=== PATIENT | female | born 1945 | race Caucasian/White ===

== ENCOUNTER 2020-04-12 14:51 | Inpatient (IN) ==
[2020-04-12] MEDS ORDERED: D5% in Water 1,000 ML IVC PRN (21:26)
[2020-04-12] MEDS ORDERED: Dextrose Gel 15 GM/37.5 ML TUBE PO PRN ×2 (21:26)
[2020-04-12] MEDS ORDERED: *HR* Dextrose 50 % in Water (Vial) 50 ML VIAL IVP PRN (21:26)
[2020-04-12] MEDS: Gabapentin 100 MG CAPSULE PO SCH (21:35)
[2020-04-12] MEDS: carvediloL 6.25 MG TABLET PO SCH (21:35)
[2020-04-12] MEDS: hydrOXYzine pamoate 25 MG CAPSULE PO SCH (21:36)
[2020-04-12] MEDS: Insulin LISPRO 300 UNITS/3 ML VIAL SQ SCH (22:42)
[2020-04-13] MEDS: *HR* Enoxaparin 30 MG/0.3 ML SYRINGE SQ SCH (06:12)
[2020-04-13] MEDS ORDERED: *HR* Metformin 500 MG TABLET PO SCH (08:00)
[2020-04-13] MEDS: carvediloL 6.25 MG TABLET PO SCH ×2 (08:41→17:15)
[2020-04-13] MEDS: allopurinoL 100 MG TABLET PO SCH (08:41)
[2020-04-13] MEDS: GlipiZIDE 5 MG TABLET PO SCH (08:41)
[2020-04-13] MEDS: lisinopriL 10 MG TABLET PO SCH (08:42)
[2020-04-13] MEDS: Insulin LISPRO 300 UNITS/3 ML VIAL SQ SCH ×4 (08:42→20:09)
[2020-04-13] MEDS: Furosemide 40 MG TABLET PO SCH (08:42)
[2020-04-13] MEDS: Aspirin Enteric Coated 81 MG Tablet PO SCH (08:42)
[2020-04-13] MEDS: Gabapentin 100 MG CAPSULE PO SCH ×3 (08:42→20:07)
[2020-04-13 16:45] LABS: Bilirubin,Urine Negative (Negative); Blood,Urine Moderate (Negative); Clarity,Urine Clear (Clear); Color,Urine Red (Yellow); Glucose,Urine (UA) Normal (Normal); Ketones,Urine Negative (Negative); Leukocyte Esterase,Urine Trace (Negative); Nitrite,Urine Negative (Negative); PH,Urine 6.5 pH Units (5.0-8.0); Protein,Urine 30 mg/dL (Neg-Trace); Urobilinogen,Urine Normal (Normal)
[2020-04-13 16:47] LABS: RBC,Urine TNTC per hpf (0-3); Squamous Epithelial Cell,Urine Few per hpf (None-Few); WBC,Urine 0-3 per hpf (0-3)
[2020-04-13] MEDS: Acetaminophen 325 MG TABLET PO PRN (20:08)
[2020-04-13] MEDS: hydrOXYzine pamoate 25 MG CAPSULE PO SCH (20:08)
[2020-04-14] MEDS: *HR* Enoxaparin 30 MG/0.3 ML SYRINGE SQ SCH (05:46)
[2020-04-14] MEDS: GlipiZIDE 5 MG TABLET PO SCH (08:13)
[2020-04-14] MEDS: Gabapentin 100 MG CAPSULE PO SCH ×3 (08:13→19:54)
[2020-04-14] MEDS: Aspirin Enteric Coated 81 MG Tablet PO SCH (08:13)
[2020-04-14] MEDS: allopurinoL 100 MG TABLET PO SCH (08:14)
[2020-04-14] MEDS: Furosemide 40 MG TABLET PO SCH (08:14)
[2020-04-14] MEDS: carvediloL 6.25 MG TABLET PO SCH ×2 (08:14→17:00)
[2020-04-14] MEDS: lisinopriL 10 MG TABLET PO SCH (08:14)
[2020-04-14] MEDS: Insulin LISPRO 300 UNITS/3 ML VIAL SQ SCH ×4 (08:15→19:54)
[2020-04-14] MEDS: Acetaminophen 325 MG TABLET PO PRN ×2 (11:01→17:02)
[2020-04-14] MEDS: hydrOXYzine pamoate 25 MG CAPSULE PO SCH (19:54)
[2020-04-14] MEDS ORDERED: Ipratropium/Albuterol Neb 3 ML IH PRN (23:15)
[2020-04-15] MEDS: *HR* Enoxaparin 40 MG/0.4 ML SYRINGE SQ SCH (04:56)
[2020-04-15 06:20] LABS: Basophils % 0.3 %; Eosinophils # 0.3 K/mcL (0.0-0.6); Eosinophils % 4.8 %; Hematocrit 37.6 % (35.3-44.9); Hemoglobin 11.5 g/dL (11.5-15.4); Immature Granulocytes % 1.2 % (0-4); Lymphocytes # 1.6 K/mcL (0.6-4.6); Lymphocytes % 24.5 %; Mean Corpuscular HGB Conc 30.6 g/dL (31.6-35.5); Mean Corpuscular Hemoglobin 29.2 pg (28.0-33.3); Mean Corpuscular Volume 95.4 fL (83.0-100.0); Mean Platelet Volume 9.4 fL (9.4-12.4); Monocytes # 0.7 K/mcL (0.0-1.3); Neutrophils # 3.8 K/mcL (1.6-8.9); Platelet Count 198 K/mcL (140-400); Red Blood Count 3.94 M/mcL (3.82-4.97); Red Cell Distribution Width 13.3 % (11.5-14.5); Segmented Neutrophils % 58.2 %; White Blood Count 6.5 K/mcL (4.3-11.1)
[2020-04-15 07:36] LABS: Calcium 8.8 mg/dL (8.6-10.3); Potassium 3.8 mEq/L (3.5-5.1)
[2020-04-15] MEDS: Furosemide 40 MG TABLET PO SCH (07:58)
[2020-04-15] MEDS: carvediloL 6.25 MG TABLET PO SCH ×2 (07:58→17:09)
[2020-04-15] MEDS: Gabapentin 100 MG CAPSULE PO SCH ×3 (07:58→20:39)
[2020-04-15] MEDS: GlipiZIDE 5 MG TABLET PO SCH (07:58)
[2020-04-15] MEDS: Aspirin Enteric Coated 81 MG Tablet PO SCH (07:58)
[2020-04-15] MEDS: lisinopriL 10 MG TABLET PO SCH (07:58)
[2020-04-15] MEDS: allopurinoL 100 MG TABLET PO SCH (07:59)
[2020-04-15] MEDS: Acetaminophen 325 MG TABLET PO PRN ×2 (08:01→20:40)
[2020-04-15] MEDS: Insulin LISPRO 300 UNITS/3 ML VIAL SQ SCH ×4 (08:03→20:40)
[2020-04-15] MEDS ORDERED: Ergocalciferol (VIT D2) 50,000 UNIT (1.25MG) CAP PO SCH (09:00)
[2020-04-15] MEDS: Budesonide/Formoterol 160/4.5 1 PUFF INH IH SCH ×2 (10:10→21:24)
[2020-04-15] MEDS: hydrOXYzine pamoate 25 MG CAPSULE PO SCH (20:39)
[2020-04-16 05:19] LABS: Basophils % 0.4 %; Eosinophils # 0.3 K/mcL (0.0-0.6); Eosinophils % 4.6 %; Hematocrit 35.1 % (35.3-44.9); Hemoglobin 10.7 g/dL (11.5-15.4); Lymphocytes # 2.1 K/mcL (0.6-4.6); Lymphocytes % 30.7 %; Mean Corpuscular HGB Conc 30.5 g/dL (31.6-35.5); Mean Corpuscular Hemoglobin 29.2 pg (28.0-33.3); Mean Corpuscular Volume 95.6 fL (83.0-100.0); Mean Platelet Volume 9.9 fL (9.4-12.4); Monocytes # 0.8 K/mcL (0.0-1.3); Monocytes % 11.5 %; Neutrophils # 3.5 K/mcL (1.6-8.9); Platelet Count 196 K/mcL (140-400); Red Blood Count 3.67 M/mcL (3.82-4.97); Red Cell Distribution Width 13.5 % (11.5-14.5); Segmented Neutrophils % 51.8 %; White Blood Count 6.8 K/mcL (4.3-11.1)
[2020-04-16 05:39] LABS: Calcium 8.9 mg/dL (8.6-10.3); Potassium 4.6 mEq/L (3.5-5.1)
[2020-04-16] MEDS: Acetaminophen 325 MG TABLET PO PRN ×2 (06:10→22:30)
[2020-04-16] MEDS: *HR* Enoxaparin 40 MG/0.4 ML SYRINGE SQ SCH (06:10)
[2020-04-16] MEDS: Insulin LISPRO 300 UNITS/3 ML VIAL SQ SCH ×4 (08:08→21:45)
[2020-04-16] MEDS: Budesonide/Formoterol 160/4.5 1 PUFF INH IH SCH ×2 (08:33→21:10)
[2020-04-16] MEDS: Furosemide 40 MG TABLET PO SCH (08:42)
[2020-04-16] MEDS: lisinopriL 10 MG TABLET PO SCH (08:42)
[2020-04-16] MEDS: Gabapentin 100 MG CAPSULE PO SCH ×3 (08:42→22:30)
[2020-04-16] MEDS: Aspirin Enteric Coated 81 MG Tablet PO SCH (08:42)
[2020-04-16] MEDS: GlipiZIDE 5 MG TABLET PO SCH (08:43)
[2020-04-16] MEDS: allopurinoL 100 MG TABLET PO SCH (08:43)
[2020-04-16] MEDS: carvediloL 6.25 MG TABLET PO SCH ×2 (08:43→17:17)
[2020-04-17] MEDS: *HR* Enoxaparin 40 MG/0.4 ML SYRINGE SQ SCH (05:46)
[2020-04-17] MEDS: Insulin LISPRO 300 UNITS/3 ML VIAL SQ SCH ×4 (08:23→20:59)
[2020-04-17] MEDS: Furosemide 40 MG TABLET PO SCH (08:24)
[2020-04-17] MEDS: GlipiZIDE 5 MG TABLET PO SCH (08:24)
[2020-04-17] MEDS: lisinopriL 10 MG TABLET PO SCH (08:24)
[2020-04-17] MEDS: allopurinoL 100 MG TABLET PO SCH (08:24)
[2020-04-17] MEDS: Aspirin Enteric Coated 81 MG Tablet PO SCH (08:25)
[2020-04-17] MEDS: carvediloL 6.25 MG TABLET PO SCH ×2 (08:25→17:29)
[2020-04-17] MEDS: Gabapentin 100 MG CAPSULE PO SCH ×3 (08:25→20:58)
[2020-04-17] MEDS: Acetaminophen 325 MG TABLET PO PRN ×2 (08:26→21:01)
[2020-04-17] MEDS: Budesonide/Formoterol 160/4.5 1 PUFF INH IH SCH ×2 (09:25→22:23)
[2020-04-18] MEDS: Acetaminophen 325 MG TABLET PO PRN ×3 (04:13→20:29)
[2020-04-18] MEDS: *HR* Enoxaparin 40 MG/0.4 ML SYRINGE SQ SCH (04:13)
[2020-04-18 06:16] LABS: Basophils % 0.6 %; Eosinophils # 0.4 K/mcL (0.0-0.6); Eosinophils % 5.4 %; Hemoglobin 11.7 g/dL (11.5-15.4); Immature Granulocytes % 0.6 % (0-4); Lymphocytes # 2.4 K/mcL (0.6-4.6); Lymphocytes % 35.6 %; Mean Corpuscular HGB Conc 30.8 g/dL (31.6-35.5); Mean Corpuscular Hemoglobin 28.7 pg (28.0-33.3); Mean Corpuscular Volume 93.4 fL (83.0-100.0); Mean Platelet Volume 9.5 fL (9.4-12.4); Monocytes # 0.6 K/mcL (0.0-1.3); Monocytes % 9.5 %; Neutrophils # 3.2 K/mcL (1.6-8.9); Platelet Count 214 K/mcL (140-400); Red Blood Count 4.07 M/mcL (3.82-4.97); Red Cell Distribution Width 13.2 % (11.5-14.5); Segmented Neutrophils % 48.3 %; White Blood Count 6.6 K/mcL (4.3-11.1)
[2020-04-18 06:39] LABS: Calcium 9.2 mg/dL (8.6-10.3); Potassium 4.6 mEq/L (3.5-5.1)
[2020-04-18] MEDS: Insulin LISPRO 300 UNITS/3 ML VIAL SQ SCH ×4 (08:12→20:29)
[2020-04-18] MEDS: lisinopriL 10 MG TABLET PO SCH (08:13)
[2020-04-18] MEDS: GlipiZIDE 5 MG TABLET PO SCH (08:13)
[2020-04-18] MEDS: allopurinoL 100 MG TABLET PO SCH (08:13)
[2020-04-18] MEDS: Furosemide 40 MG TABLET PO SCH (08:13)
[2020-04-18] MEDS: Aspirin Enteric Coated 81 MG Tablet PO SCH (08:13)
[2020-04-18] MEDS: carvediloL 6.25 MG TABLET PO SCH ×2 (08:13→16:42)
[2020-04-18] MEDS: Gabapentin 100 MG CAPSULE PO SCH ×3 (08:13→20:29)
[2020-04-18] MEDS: Budesonide/Formoterol 160/4.5 1 PUFF INH IH SCH ×2 (10:14→21:30)
[2020-04-19] MEDS: Acetaminophen 325 MG TABLET PO PRN ×2 (04:03→08:26)
[2020-04-19] MEDS: *HR* Enoxaparin 40 MG/0.4 ML SYRINGE SQ SCH (04:03)
[2020-04-19 07:09] VITALS: BP 151/67
[2020-04-19] MEDS: carvediloL 6.25 MG TABLET PO SCH (08:25)
[2020-04-19] MEDS: Gabapentin 100 MG CAPSULE PO SCH (08:26)
[2020-04-19] MEDS: allopurinoL 100 MG TABLET PO SCH (08:26)
[2020-04-19] MEDS: Aspirin Enteric Coated 81 MG Tablet PO SCH (08:26)
[2020-04-19] MEDS: GlipiZIDE 5 MG TABLET PO SCH (08:26)
[2020-04-19] MEDS: lisinopriL 10 MG TABLET PO SCH (08:26)
[2020-04-19] MEDS: Furosemide 40 MG TABLET PO SCH (08:26)
[2020-04-19] MEDS: Insulin LISPRO 300 UNITS/3 ML VIAL SQ SCH (08:30)
[2020-04-19] MEDS: Budesonide/Formoterol 160/4.5 1 PUFF INH IH SCH (10:32)
== END 2020-04-19 12:25 | disposition home health service (06) | DRG 945 ==
LOC: INPGRE 18:37
PROVIDERS: ADMIT Family Medicine; ATTEND Family Medicine